=== PATIENT | female | born 1965 | race Caucasian/White ===

== ENCOUNTER 2025-06-16 10:15 | Outpatient (AMB) | payer OTHER, SELFPAY ==
--- OUTSIDE RECORDS SUMMARY | 2024-01-07 04:00 | XMS_ITS ---
Author Organization [facility] Address [address] [facility] [address] [place] [address] Care Team Providers Care Second Hand Paper Machine Name Role Phone Pao RIZVI, Ronak Primary Care Provider LAURA Ramires Unavailable [phone] Chantel Naik Unavailable Unavailable REASON FOR VISIT 10:30am... removal of hardware left and right foot, right and left maggie osteotomies Encounters Encounter Location Date Provider Diagnosis [address] [address] 01/07/2024 LAURA UGALDE Plan Of Treatment No Information Progress Notes * Giselle ZAMORANO ADOB:02/1966 (59 yo F)Acc No.[id number]:01/07/2024 Patient: Giselle WERNER Provider: Lebron Gonzalez DPM :1965 A ge:58 Y S ex:Female Date:01/07/2024 Address:[address] [place], [place] [id number] Pcp:Ronak Cedeno MD * Billing Information: * Visit Code: * Procedure Codes: * Electronic signature of Lucia FULLERPOk on 06/16/2025 at 10:17 AM EST Sign off status: Pending * Provider: Lebron Gonzalez DPM Date: 0 01/07/2024 Generated for Printi ng/Faxing/eTransmitting on: 1 08/16/2024 10:17 AM EST
--- OUTSIDE RECORDS SUMMARY | 2024-01-22 10:30 | XMS_ITS ---
Author Organization [facility] Address [address] [address] Care Team Providers Care National Account Director Name Role Phone Pao RIZVI, Ronak Primary Care Provider LAURA Ramires Unavailable [phone] Chantel Naik Unavailable Unavailable REASON FOR VISIT 2 week post-op Encounters Encounter Location Date Provider Diagnosis [facility] [address] [address] 01/22/2024 LAURA UGALDE Plan Of Treatment No Information Progress Notes * Giselle ZAMORANO ADOB:02/1966 (59 yo F)Acc No.[id number]:01/22/2024 post-op Patient: Giselle WERNER Provider: Lebron Gonzalez DPM :1965 A ge:58 Y S ex:Female Date:01/22/2024 Address:[address] [place], [place] [id number] Pcp:Ronak Cedeno MD Subjective: * Chief Complaints: Objective: * Vitals: Assessment: Plan: * Treatment: * Billing Information: * Electronic signature of Lucia FULLERPBaileyMBailey on 06/16/2025 at 10:17 AM EST Sign off status: Pending * Provider: Lebron Gonzalez DPM Date: 0 01/22/2024 Generated for Printi ng/Faxing/eTransmitting on: 1 08/16/2024 10:17 AM EST
--- OUTSIDE RECORDS SUMMARY | 2024-04-25 10:00 | XMS_ITS ---
Author Organization [facility] Address [address] [address] Care Team Providers Care Phlebotomy Lab Assistant Name Role Phone Pao RIZVI, Ronak Primary Care Provider LAURA Ramires Unavailable [phone] Chantel Naik Unavailable Unavailable REASON FOR VISIT 2 month Encounters Encounter Location Date Provider Diagnosis [facility] [address] [address] 04/25/2024 LAURA UGALDE Plan Of Treatment No Information Progress Notes * Giselle ZAMORANO ADOB:02/1966 (59 yo F)Acc No.[id number]:04/25/2024 Progress Note Patient: Giselle WERNER Provider: Lebron Gonzalez DPM :1965 A ge:58 Y S ex:Female Date:04/25/2024 Address:[address] [place], [place] [id number] Pcp:Ronak Cedeno MD Subjective: * Chief Complaints: * 1 . 2 month. * Medical History: Objective: * Vitals: Assessment: Plan: * Treatment: * Billing Information: * Visit Code: * Procedure Codes: * Electronic signature of Lucia FULLERPOk on 06/16/2025 at 10:17 AM EST Sign off status: Pending * Provider: Lebron Gonzalez DPM Date: Generated for Tami crystal/Eulogio/eTransmitting on: 08/16/2024 10:17 AM EST
--- OUTSIDE RECORDS SUMMARY | 2025-03-13 04:00 | XMS_ITS | Continuity of Care Document ---
Author Organization [facility] Address [address] [place] [address] Phone Care Team Providers Care Railroad Track Inspector Name Role Phone Raji RIZVI, RVT, RPVI, Cullen Unavailable U navailable Allergies, Adverse Reactions, Alerts Substance Reaction Status Criticality trimethoprim Active No Information sulfamethoxazole Active No Informat ion PENICILLIN Active No Information Procedures Procedure Date Office/Outpt E&M Established 15 Mins- CT & [place] Duplex Scan-extrem Veins; Uni/ CT & [place] A Duplex Scan-extrem Veins; Uni/ CT & [place] J Inj Scleros Solut; Mx Veins 1- CT & [place] J Ultrason Guidan Needle Bx-rad- CT & [place] J Office/Outpt E&M Established 15 Mins- CT & [place] Duplex Scan-extrem Veins; Uni/ CT & [place] M Office/Outpt E&M Established 15 Mins- CT & [place] Duplex Scan-extrem Veins; Uni/ CT & [place] J Duplex Scan-extrem Veins; Uni/ CT & [place] D Ultrason Guidan Needle Bx-rad- CT & MA D Inj Sclerosing Solution; Sngl- CT & [place] D Office/Outpt E&M Established 15 Mins- CT & [place] Duplex Scan-extrem Veins; Uni/ CT & [place] J Duplex Scan-extrem Veins; Uni/ CT & [place] J Inj Scleros Solut; Mx Veins 1- CT & MA M Ultrason Guidan Needle Bx-rad- CT & [place] M Duplex Scan-extrem Veins; Uni/ CT & [place] M Endovenous Laser, 1st Vein- CT & [place] Endovenous Rf, 1st Vein- CT & [place] 2023 Ultrason Guidan Needle Bx-rad- CT & MA M Inj Sclerosing Solution; Sngl- CT & [place] M Offic/outpt E&m Estab 5 Min Trial- Telem edicine CT & [place] Offic Cons New/estab Mod-hi 60 Duplex Scan-extrem Veins; Uni/ Advance Directives Directive Yes / No Effective Date File Name No Information Encounters Encounter Description Practice Location Reason(s) For Visit Diagnoses Date Provider Providers Copied on Encounter Office/Outpt E&M Established 15 Mins- [facility] & [place] [facility], [address] [place] [address] Dr Romero [address], [place], [id number], tel:[phone] [place] Venous insufficiency (chronic) (peripheral) 5 Raji RIZVI RVT, RPVI Robert. [address] [place] [address], Jacqueline [place], [id number], [place]. tel:[phone] Referring Provider: Ronak Cedeno MD , [address] [place] [address], [address]. tel:[phone] [facility], [address] [place] [address] Dr Romero [address], [id number], [place] tel:[phone] [facility] [place] Varicose veins of left lower extremity with pain 5 Raji RIZVI RVT, RPVI Robert. [address] [place] [address], [place], [id number], . tel:[phone] Referring Provider: Ronak Cedeno MD R, [address] [place] [address], [address]. tel:[phone] [facility] [place] [facility], [address] [place] [address] Dr Romero [address]SuHanane jade [place], [id number], tel:[phone] CVR - [facility] Encounter for follow-up examination after completed treatment for conditions other than malignant neoplasmVaric ose veins of left lower extremity with pain Mack-0 5 Raji RIZVI, LILLIAN, RPJEFF Berman. [address] [place] [address], [facility] [place], [id number], [place]. tel:[phone] Referring Provider: Ronak Cedeno MD R, [address] [place] [address], [address]. tel:[phone] [facility], [address] [place] [address] Dr Romero 1000[place] jade [place], [id number], [place] tel:[phone] [facility] (idiopathic) with inflammation of left lower extremity Mack-0 5 Raji RIZVI RVT, RPJEFF Berman. [address] [place] [address], [facility] [place], [id number], [place]. tel:[phone] Referring Provider: Ronak Cedeno MD R, [address] [place] [address], [address]. tel:[phone] [facility], [address] [place] [address] Dr Romero 1000[place] jade [place], [id number], [place] tel:[phone] CV - [facility] No Information 5 Raji RIZVI RVT, DEIRDRE Berman. [address] [place] [address], [facility] [place], [id number], [place]. tel:[phone] Office/Outpt E&M Established 15 Mins- CT & [place] [facility] [place] [facility], [address] [place] [address] Dr Romero 1000SuHanane jade [place], [id number], [place] tel:[phone] [place] Venous insufficiency (chronic) (peripheral)C ramp and spasm 5 Raji RIZVI RVT, DEIRDRE Berman. [address] [place] [address], Jacqueline morse [place], [id number], [place]. tel:[phone] Referring Provider: Ronak Cedeno MD R, [address] [place] [address], [address]. tel:[phone] [facility], [address] [place] [address] Dr Romero 1000Suite [place] Jack [place], [id number], [place] tel:[phone] [place] Chronic venous hypertension (idiopathic) with other complications of left lower extremity 5 Raji RIZVI RVT, DEIRDRE Berman. [address] [place] [address], Jacqueline morse [place], [id number], [place]. tel:[phone] Referring Provider: Ronak Cedeno MD R, [address] [place] [address], [address]. tel:[phone] Office/Outpt E&M Established 15 Mins- CT & [facility], [address] [place] [address] Dr Romero [address] 1000[place], [id number], [place] tel:[phone] [place] Cramp and spasmVenous insufficiency (chronic) (peripheral) 5 Raji RIZVI RVT, DEIRDRE Berman. [address] [place] [address], Jacqueline morse [place], [id number], [place]. tel:[phone] Referring Provider: Ronak Cedeno MD R, [address] [place] [address], [address]. tel:[phone] [facility], [address] [place] [address] Dr Romero [address] 1000[place], [id number], [place] tel:[phone] [place] Varicose veins of left lower extremity with pain 5 Raji RIZVI RVT, DEIRDRE Berman. [address] [place] [address], Jacqueline morse [place], [id number], [place]. tel:[phone] Referring Provider: Ronak Cedeno MD R, [address] [place] [address], [address]. tel:[phone] [facility] [place] [facility], [address] [place] [address] Dr Romero 1000Suite [place] Jack [place], [id number], [place] tel:[phone] [facility] Encounter for follow-up examination after completed treatment for conditions other than malignant neoplasmPain in left lower leg 4 Raji RIZVI RVT, DEIRDRE Berman. [address] [place] [address], [place], [place], [id number], [place]. tel:[phone] Referring Provider: Ronak Rey, [address] [place] [address], [address]. tel:[phone] [facility], [address] [place] [address] Dr Romero 1000SuHanane jade [place], [id number], [place] tel:[phone] [facility] Chronic venous hypertension (idiopathic) with inflammation of left lower extremity 4 Miguel Lin. [address] [address], [facility] [place], [id number], [place]. tel:[phone] Referring Provider: Ronak Rey, [address] [place] [address], [address]. tel:[phone] Office/Outpt E&M Established 15 Mins- CT & [facility] MD [facility], [address] [place] [address] Dr Romero 1000Suite [place] Jack [place], [id number], [place] tel:[phone] [facility] Cramp and spasmVenous insufficiency (chronic) (peripheral) 4 Raji RIZVI RVT, DEIRDRE Berman. [address] [place] [address], [facility] [place], [id number], [place]. tel:[phone] Referring Provider: Ronak Rey, [address] [place] [address], [address]. tel:[phone] [facility] [place] [facility], [address] [place] [address] Dr Romero [address]Suite [place] Jack [place], [id number], [place] tel:[phone] [facility] Encounter for follow-up examination after completed treatment for conditions other than malignant neVaricose veins of left lower extremity with pain 4 Raji RIZVI RVT, DEIRDRE Berman. [address] [place] [address], [facility] [place], [id number], [place]. tel:[phone] Referring Provider: Ronak Cedeno MD R, [address] [place] [address], [address]. tel:[phone] [facility], [address] [place] [address] Dr Romero [address] 1000[place], [id number], [place] tel:[phone] CV[facility] - [place] [facility] Encounter for follow-up examination after completed treatment for conditions other than malignant neVaricose veins of left lower extremity with pain 4 Raji RIZVI RVT, DEIRDRE Berman. [address] [place] [address], [facility] [place], [id number], [place]. tel:[phone] Referring Provider: Ronak Cedeno MD R, [address] [place] [address], [address]. tel:[phone] [facility], [address] [place] [address] Dr Romero 1000Suite [place] Jack [place], [id number], [place] tel:[phone] CVR - [facility] Varicose veins of left lower extremity with other complications 4 Raji RIZVI RVT, DEIRDRE Berman. [address] [place] [address], Jacqueline [place], [id number], [place]. tel:[phone] Referring Provider: Ronak Cedeno MD R, [address] [place] [address], [address]. tel:[phone] [facility], [address] [place] [address] Dr Romero [address]Suite [place] Jack [place], [id number], [place] tel:[phone] [facility] [place] [facility] Encounter for follow-up examination after completed treatment for conditions other than malignant neoplasmPain in left leg 4 Raji RIZVI RVT, DEIRDRE Berman. [address] [place] [address], Jacqueline morse [place], [id number], [place]. tel:[phone] Referring Provider: Ronak Rey, [address] [place] [address], [address]. tel:[phone] [facility], [address] [place] [address] Dr Romero 1000[address] 1000[place], [id number], [place] tel:[phone] [facility] [place] Chronic venous hypertension (idiopathic) with inflammation of left lower extremity 4 Raji RIZVI RVT, DEIRDRE Berman. [address] [place] [address], [place], [id number], [place]. tel:[phone] Referring Provider: Ronak Rey, [address] [place] [address], [address]. tel:[phone] [facility], [address] [place] [address] Dr Romero [place] [address], [id number], [place] tel:[phone] [facility] Varicose veins of left lower extremity with other complications 4 Raji RIZVI RVT, DEIRDRE Berman. [address] [place] [address], [place], [id number], [place]. tel:[phone] Referring Provider: Ronak Rey, [address] [place] [address], [address]. tel:[phone] Offic/outpt E&m Estab 5 Min Trial- Telemedicine CT & [place] [facility], [address] [place] [address] Dr Romero 1000[address] 1000[place], [id number], [place] tel:[phone] [facility] Cramp and spasmVenous insufficiency (chronic) (peripheral) 4 Miguel Lin. [address] [place] [address], Jacqueline [place]se [place], [id number], [place]. tel:[phone] Referring Provider: Roank Rey, [address] [place], [place] [address]ven[place], [address]. tel:[phone] Offic Cons New/estab Mod-hi 60 [facility], [address] [place] [address] [address], [id number], tel:[phone] [facility] Varicose veins of left lower extremity with other complications Pain in left lower legPain in left legCramp and spasm Feb-2 0 4 Raji RIZVI RVT, DEIRDRE Berman. [address] [place] [address], Jacqueline morse [place], [id number], [place]. tel:[phone] Referring Provider: Ronak Rey, [address] [place] [address] [place], [address]. tel:[phone] [facility], [address] [place] [address] Dr Romero 1000[facility] [address], [id number], tel:[phone] [facility] Chronic venous hypertension (idiopathic) with other complications of left lower extremity b-2 4 Raji RIZVI RVT, DEIRDRE Berman. [address] [place] [address], [place], [id number], [place]. tel:[phone] Referring Provider: Ronak Rey, [address] [place], [place] [address], [address]. tel:[phone] Family History Family Member Type Diagnosis Age At Onset No Information Payers Payer name Insurance type Covered constitution [facility] [id number] Social History Type Description Quantity Date Captured Comments Alcohol Use Details Unknown Caffeine Use Details Unknown Tobacco Use Status Current non-smoker Smoking Status Never Smoker Non-Smoking Tobacco Use Details : No Details Available : No Details Available Sex Female Vital Signs Date / Time: Height Weight BMI Pulse Rate Blood Pressure Temperature Respiratory Rate Body Surface Area Head Circumference Head Circ. Percentile Wt./Paul. Percentile BMI percentile Pulse Ox Inhaled Ox 77.110 kg (170.00 lbs) 31.1 2 kg/m eter (2) 120/80 mm[Hg] Chief Complaint And Reason For Visit No Information Reason For Referral Reason For Referral No Information Plan Of Treatment Date Type Action Status Goal Diet education completed Goal Diet education completed Goal Diet education completed Goal Diet education completed Goal Diet education completed Referral Ordered: Weight management: Referral to physician timeframe: 3 Months (related to Body mass index (BMI) 31.0-31.9, adult) ordered Referral Ordered: Weight management: Referral to physician timeframe: 3 Months (related to Body mass index (BMI) 31.0-31.9, adult) ordered Referral Ordered: Weight management: Referral to physician timeframe: 3 Months (related to Body mass index (BMI) 31.0-31.9, adult) ordered Referral Ordered: Weight management: Referral to physician timeframe: 3 Months (related to Body mass index (BMI) 31.0-31.9, adult) ordered Referral Ordered: Weight management: Referral to physician timeframe: 3 Months (related to Body mass index (BMI) 31.0-31.9, adult) ordered Appointment Giselle Zamorano BOOKED Appointment Giselle Zamorano BOOKED History Of Present Illness Encounter Date Complaint History Of Prese nt Illness No Information Functional Status Date Functional Assessmen t No Information Instructions Date Instruction Additional Infor yuni Patient education booklet given Related to Venous insufficiency (chronic) (peripheral) Lifestyle education Related to B conor mass index (BMI) 31.0-31.9, adult Giving Encouragement to exercise Related to Body mass index (BMI) 31.0-31.9, adult Diet education Related to Body mass index (BMI) 31.0-31.9, adult Patient education booklet given Related to Venous insufficiency (chronic) (peripheral) Lifestyle education Related to B conor mass index (BMI) 31.0-31.9, adult Giving Encouragement to exercise Related to Body mass index (BMI) 31.0-31.9, adult Diet education Related to Body mass index (BMI) 31.0-31.9, adult Patient education booklet given Related to Cramp and spasm Compression stocking usage as conservative measure Related to Cramp and spasm Giving Encouragement to exercise Related to Body mass index (BMI) 31.0-31.9, adult Lifestyle education Related to B conor mass index (BMI) 31.0-31.9, adult Diet education Related to Body mass index (BMI) 31.0-31.9, adult Compression stocking usage as conservative measure Related to Cramp and spasm Lifestyle education Related to B conor mass index (BMI) 31.0-31.9, adult Giving Encouragement to exercise Related to Body mass index (BMI) 31.0-31.9, adult Diet education Related to Body mass index (BMI) 31.0-31.9, adult Patient education booklet given Related to Cramp and spasm Patient education booklet given Related to Cramp and spasm Compression stocking usage as conservative measure Related to Cramp and spasm Pre and post instruc tions reviewed and provided Related to Varicose veins of left lower extremity with other complications Patient education booklet given Related to Varicose veins of left lower extremity with other complications Lifestyle education Related to B conor mass index (BMI) 31.0-31.9, adult Giving Encouragement to exercise Related to Body mass index (BMI) 31.0-31.9, adult Diet education Related to Body mass index (BMI) 31.0-31.9, adult Assessments Type Assessment Date No Information Patient Care Teams Name Effective Dates (start - stop) Status Members No Information
--- OUTSIDE RECORDS SUMMARY | 2025-06-16 10:17 | XMS_ITS | Clinical Summary ---
Author Organization [facility] [address] [place] [address] Address [address] [place] [address] Phone Care Team Providers Care Cotton Weigher Name Role Phone Ronak Cedeno MD Primary Care Provider Allergies Active Allergy Reactions Criticality Noted Date Comments Penicillins 07/19/2011 Other Reaction(s): Hives/Urticaria Sulfamethoxazole-Trimethopr im 08/24/2012 Yeast infections Medications loratadine (CLARITIN) 10 mg tablet Take 1 Tablet by mouth daily as needed for Allergies. 4 Active albuterol 2.5 mg /3 mL (0.083 %) nebulizer solution Take 1 Vial by nebulization every 4 hours as needed for Wheezing. 5 Active albuterol HFA (PROAIR HFA ; PROVENTIL HFA ; VENTOLIN HFA) 90 mcg/actuation inhaler Inhale 2 puffs by mouth every 4 (four) hours if needed for wheezing. 6.7 g 3 5 Active omeprazole (PriLOSEC) [address] capsule Take 1 capsule (20 mg total) by mouth 1 (one) time each day. Do not crush or chew. 90 capsule 1 5 Active Active Problems Problem Noted Date Diagnosed Date COVID-19 12/09/2021 Overview (05/31/2024): Pt reported 11/29/21 Gastroesophageal reflux disease without esophagi tis 01/17/2020 Intermittent lightheadedness 01/17/2020 Menopausal syndrome (hot flashes) 01/17/2020 Varicose veins with pain 02/13/2019 Hypertriglyceridemia 09/03/2015 Overweight 09/03/2015 Neck pain, acute 06/27/2013 Urinary, incontinence, stress female 09/27/2012 Allergic rhinitis 07/19/2011 Encounters Date Type Department Care Team Description 05/30/2025 9:16 AM EST - 05/30/2025 11:59 PM EST Hospital Encounter Radiology Department - [address] [phone] Abnormal mammogram Discharge Disposition: Home or Self Care 05/30/2025 9:16 AM EST - 05/30/2025 11:59 PM EST Hospital Encounter Radiology Department - [address] [phone] Abnormal mammogram Discharge Disposition: Home or Self Care 05/30/2025 Results Follow-Up Obstetrics and Gynecology - [address] [phone] Michelle Ly CNM 03/17/2025 3:09 PM EDT - 03/17/2025 11:59 PM EDT Hospital Encounter Radiology Department - [address] [phone] Encounter for annual routine gynecological examination; Screening mammogram for breast cancer Discharge Disposition: Home or Self Care from Last 3 Months Immunizations Immunization Administration Dates Next Due Influenza trivalent, 0.5mL, preservative free (Fluarix; FluLaval; Fluzone) ages 6mo and older (Afluria) 3 years and older 03/07/2017,04/05/2015,04/05/2015,2013,03/15/2013 Influenza trivalent, with preservative (Fluzone; Afluria) 6mo and older 04/02/2014 Influenza, Unspecified 03/07/2017 Tdap Tetanus diptheria acell ular pertussis (Boostrix; Adacel) 7yo and older 09/27/2012,08/24/2008 Surgical History Surgery Date Site/Laterality Comments OTHER SURGICAL HISTORY 12/2006 PROCEDURE: HISTORY OTHER; COMMENT: breast reduction OTHER SURGICAL HISTORY PROCEDURE: HISTORY OTHER; COMMENT: D &C BREAST BIOPSY Left PROCEDURE: BX BREAST; PERC NEEDLE CORE W/IMAG GUID; COMMENT: b9 BREAST SURGERY PROCEDURE: [place] UNLISTED PROCEDURE BREAST; COMMENT: reduction 2004 COLONOSCOPY 03/23/2018 PROCEDURE: HISTORICAL COLONOSCOPY; COMMENT: negative FOOT SURGERY each foot bunions surgery then hardware removal Medical History Medical History Date Comments Seasonal allergies DX:Seasonal a llergies Neck pain, acute DX:Neck pain, a cute Family history of diabetes mellitus 07/19/2011 DX:Family history of diabetes mellitus Urinary, incontinence, stress female 09/27/2012 DX:Urinary, incontinence, stress female Overweight 09/03/2015 DX:Overweight Hypertriglyceridemia 09/03/2015 DX:Hypertri glyceridemia Family History Medical History Relation Name Comments Other: MVA Brother 1 Jose Other: Substance Abuse; opioids Brother 2 Leonardo Depression Brother 3 Amador No Known Problems Brother 4 Ministerio No Known Problems Daughter Kristy : 1994 Heart attack Father Heart failure Father Other: Small Cell Lung Cancer Father Diabetes Mother Hypertension Mother Stroke Mother No Known Problems Sister 1 Jud No Known Problems Sister 2 Cornelia Breast cancer Neg Hx Colon cancer Neg Hx Ovarian cancer Neg Hx Relation Name Status Comments Brother 1 Jose Brother 2 Leonardo Alive Brother 3 Amador Alive Brother 4 Ministerio Alive Daughter Kristy Alive Father (Age 67) Maternal Grandfather Maternal Grandmother Mother (Age 59) Paternal Grandfather Paternal Grandmother Sister 1 Jud Alive Sister 2 Cornelia Alive Social History Tobacco Use Types Packs/Day Years Used Date Smoking Tobacco: Former Cigarettes 1 14 0 1979 - 1993 Smokeless Tobacco: Never Tobacco Cessation:Counseling Given: Not Answered Alcohol Use Standard Drinks/Week Comments No 0 (1 standard drink = 0.6 oz pur e alcohol) Housing Instability Answer Date Recorde d Are you worried that in the next 2 months you may not have stable housing? No 09/26/2024 Food Access & Nutrition Answer Date Rec orded Do you have access to a vari ety of food including fruits and vegetables? Yes 09/26/2024 Access to Healthcare Answer Date Record ed Within the last 3 months, ho w many times did you visit the emergency department for your medical care? 0 09/26/2024 Health Literacy Answer Date Recorded How often do you need to hav e someone help you when you read instructions, pamphlets, or other written material from your doctor or pharmacy? Never 09/26/2024 Caregiver: How often do you need to have someone help you when you read instructions, pamphlets, or other written material from your doctor or pharmacy? Not on file 09/26/2024 Financial Risk Answer Date Recorded How hard is it for you to pa y for the very basics like food, housing, medical care, and air conditioning / heating? Not very hard 09/26/2024 Transportation Answer Date Recorded Has the lack of transportati on kept you from meetings, work, or from getting things needed for daily living? No Has the lack of transportati on kept you from medical appointments or from getting medications? No 09/26/2024 Social Isolation Answer Date Recorded How often do you feel lonely or isolated from th ose around you? Never 09/26/2024 Food Risk Answer Date Recorded Within the past 12 months we worried whether our food would run out before we got money to buy more. Never true 09/26/2024 Within the past 12 months th e food we bought just didn't last and we didn't have money to get more. Never true 09/26/2024 Dependent Care Answer Date Recorded Do you need help finding or paying for care for your loved ones. For example, director of early childhood education or elderly care for an older adult? No 09/26/2024 Education Answer Date Recorded Do you think completing more education or training, like finishing a GED, going to college, or learning a trade, would be helpful for you? No 09/26/2024 Employment and Income Answer Date Recor ded During the last four weeks, have you been actively looking for work? No 09/26/2024 Living Situation Answer Date Recorded What is your living situation? Unrecognized valu e 09/26/2024 Comments No Sex and Gender Information Value Date Recorded Sex Assigned at Not on file Legal Sex Female 3:55 AM EST Gender Identity Not on file Sexual Orientation Not on file Obstetrics History * This document contains information received from the source organization and may not represent a complete record from that organization. Para Term AB IAB SAB Ectopic Multiple Livin g Live Births 2 1 1 0 0 0 1 1 Date Outcome GA Total Labor Labor/2nd/3rd Weight Sex Type Anes PTL Mariela A1 A5 Name Clin Term Vag-S pont Living Last Filed Vital Signs Vital Sign Reading Time Taken Comments Blood Pressure 120/76 02/03/2025 9:56 AM EDT Pulse 87 02/03/2025 9:56 AM EDT Temperature 36.9 C (98.4 F) 02/03/2025 9:56 AM EDT Respiratory Rate 16 02/03/2025 9:56 AM EDT Oxygen Saturation - - Inhaled Oxygen Concentration - - Weight 76.7 kg (169 lb) 02/03/2025 9:56 AM EDT Height 157.5 cm (5' 2 ) 02/03/2025 9:56 AM EDT Body Mass Index 30.91 02/03/2025 9:56 AM EDT Plan of Treatment Upcoming Encounters Date Type Department Care Team (Late st Contact Info) Description 08/07/2025 11:15 AM EST Office Visit Adult Medicine [address] [phone] Ronak Cedeno MD [address] [place] [address] 02/05/2026 8:30 AM EDT Office Visit Adult Medicine [address] [phone] Sofiya Asif PA [address] [place] [address] Health Maintenance Due Date Last Done Comments Hepatitis B Vaccines (1 of 3 - 19+ 3-dose series) 1985 Pneumococcal Vaccine: 50+ Years (1 of 1 - PCV) 2016 Zoster Vaccines (1 of 2) 2016 DTaP,Tdap,and Td Vaccines (3 - Td or Tdap) 09/27/2022 09/27/2012, 08/24/2008 COVID-19 Vaccine ( season) 2025 Influenza Vaccine (#1) 2025 7, 03/07/2017, 04/05/2015, Additional history exists Social Influencers of Health Screening 09/26/2025 09/26/2024 Breast Cancer Screening 05/30/2027 05/30/2025, 03/17 Colorectal Cancer Screening: Colonoscopy 03/23/2028 03/23/2018 Cervical Cancer Screening: HPV 10/03/2029 10/03/2024, 06/27/2013 Cholesterol Screening (Lipid Panel) 02/03/2030 02/03/2025, 11/05/2023 RSV Immunization Adult Patients (1 - 1-dose 75+ series) 2041 Hepatitis C Screening Completed 01/17/2022 Depression Screening Completed 09/26/2024 HIB Vaccines Aged Out No longer eligi ble based on patient's age to complete this topic HIV Screening Discontinued HPV Vaccines Aged Out No longer eligi ble based on patient's age to complete this topic Hepatitis A Vaccines Aged Out No long er eligible based on patient's age to complete this topic IPV Vaccines Aged Out No longer eligi ble based on patient's age to complete this topic MMR Vaccines Aged Out No longer eligi ble based on patient's age to complete this topic Meningococcal ACWY Vaccine Aged Out N o longer eligible based on patient's age to complete this topic Meningococcal B Vaccine Aged Out No l onger eligible based on patient's age to complete this topic RSV Immunization Patients Under 20 months Aged Out No longer eligible based on patient's age to complete this topic Varicella Vaccines Aged Out No longer eligible based on patient's age to complete this topic Procedures Procedure Name Priority Date/Time Associated Diagnosis Comments US BREAST LIMITED LEFT Routine 05/30/2025 10:08 AM EST Abnormal mammogram MG MAMMO DIGITAL DIAGNOSTIC W HERBERT LEFT Routine 05/30/2025 9:32 AM EST Abnormal mammogram MG MAMMO DIGITAL SCREENING W HERBERT BILAT Routine 03/17/2025 3:25 PM EDT Encounter for annual routine gynecological examination Screening mammogram for breast cancer LIPID PANEL WITH REFLEX TO DIRECT LDL Routine 02/03/2025 10:47 AM EDT Hypertriglyceridemia HPV WITH REFLEX GENOTYPE Routine 10/03/2024 3:07 PM EDT Encounter for annual routine gynecological examination HEPATITIS C SCREENING Routine 01/17/2022 COLONOSCOPY Routine 03/23/2018 from Last 3 Months or Most Recently Relevant to Health Maintenance Results * US Breast Limited Left (05/30/2025 10:08 AM EST) Anatomical Region Laterality Modality Breast Left Ultrasound 05/30/2025 9:58 AM EST Impressions 05/30/2025 10:14 AM EST Benign. Findings and recommendations were conveyed to the patient. BI-RADS CATEGORY: 1 - NEGATIVE RECOMMENDATION: Return to annual mammography. Return to annual mammography. Return to annual mammography. Mammo Location: [facility], [address] [place] [address], [id number], . -------- FINAL REPORT -------- Dictated By: Polly House Dictated Date: 05/30/2025 09:58 ET Assigned Physician: Polly House Reviewed and Electronically Signed By: Polly House Signed Date: 05/30/2025 10:14 ET Workstation ID: [id number] Transcribed By: Self Edit Transcribed Date: 05/30/2025 10:05 ET Narrative 05/30/2025 10:14 AM EST CLINICAL: 59 years old, Female, focal asymmetry anterior upper outer left breast on screening mammogram of 03/17/2025.. COMPARISON: Mammograms dating back to 11/05/2011. FINDINGS: MAMMOGRAPHY TECHNIQUE: ML, spot compression MLO, and spot compression CC views of the left breast were obtained digitally with 3-D mammogram (digital breast tomosynthesis). Computer-aided detection was utilized in evaluation of this exam (CAD). Focal asymmetry at the 12 o'clock position in the retroareolar region is a persistent finding. There is a tissue marker adjacent to this area. BREAST DENSITY: B - There are scattered areas of fibroglandular density. ULTRASOUND TECHNIQUE: Ultrasound evaluation of the upper left breast at the 12 o'clock position was performed. Portions of the upper outer and upper inner quadrants were examined. There is no evidence of morphologically suspicious mass. There is no cyst or solid mass. Procedure Note Polly House MD - 05/30/2025 CLINICAL: 59 years old, Female, focal asymmetry anterior upper outer leftbreast on screening mammogram of 03/17/2025.. COMPARISON: Mammograms dating back to 11/05/2011. FINDINGS: MAMMOGRAPHY TECHNIQUE: ML, spot compression MLO, and spot compression CC views of theleft breast were obtained digitally with 3-D mammogram (digital breasttomosynthesis). Computer-aided detection was utilized in evaluation ofthis exam (CAD). Focal asymmetry at the 12 o'clock position in the retroareolar region is apersistent finding. There is a tissue marker adjacent to this area. BREAST DENSITY: B - There are scattered areas of fibroglandular density. ULTRASOUND TECHNIQUE: Ultrasound evaluation of the upper left breast at the 12o'clock position was performed. Portions of the upper outer and upperinner quadrants were examined. There is no evidence of morphologically suspicious mass. There is no cystor solid mass. IMPRESSION: Benign. Findings and recommendations were conveyed to the patient. BI-RADS CATEGORY: 1 - NEGATIVE RECOMMENDATION: Return to annual mammography. Return to annual mammography. Return toannual mammography. Mammo Location: [facility], [address] [place] [address], [phone], . -------- FINAL REPORT -------- Dictated By: Polly House Dictated Date: 05/30/2025 09:58 ET Assigned Physician: Polly House Reviewed and Electronically Signed By: Polly House Signed Date: 05/30/2025 10:14 ET Workstation ID: [id number] Transcribed By: Self Edit Transcribed Date: 05/30/2025 10:05 ET us Michelle BEAUCHAMP IMG US PROCEDURES Final Result * MG Mammo Digital Diagnostic w Herbert Left (05/30/2025 9:32 AM EST) Anatomical Region Laterality Modality Breast Left Mammography 05/30/2025 9:58 AM EST Impressions 05/30/2025 10:14 AM EST Benign. Findings and recommendations were conveyed to the patient. BI-RADS CATEGORY: 1 - NEGATIVE RECOMMENDATION: Return to annual mammography. Return to annual mammography. Return to annual mammography. Mammo Location: [facility], [address] [place] [address], [phone], . -------- FINAL REPORT -------- Dictated By: Polly House Dictated Date: 05/30/2025 09:58 ET Assigned Physician: Polly House Reviewed and Electronically Signed By: Polly House Signed Date: 05/30/2025 10:14 ET Workstation ID: [id number] Transcribed By: Self Edit Transcribed Date: 05/30/2025 10:05 ET Narrative 05/30/2025 10:14 AM EST CLINICAL: 59 years old, Female, focal asymmetry anterior upper outer left breast on screening mammogram of 03/17/2025.. COMPARISON: Mammograms dating back to 11/05/2011. FINDINGS: MAMMOGRAPHY TECHNIQUE: ML, spot compression MLO, and spot compression CC views of the left breast were obtained digitally with 3-D mammogram (digital breast tomosynthesis). Computer-aided detection was utilized in evaluation of this exam (CAD). Focal asymmetry at the 12 o'clock position in the retroareolar region is a persistent finding. There is a tissue marker adjacent to this area. BREAST DENSITY: B - There are scattered areas of fibroglandular density. ULTRASOUND TECHNIQUE: Ultrasound evaluation of the upper left breast at the 12 o'clock position was performed. Portions of the upper outer and upper inner quadrants were examined. There is no evidence of morphologically suspicious mass. There is no cyst or solid mass. Procedure Note Polly House MD - 05/30/2025 CLINICAL: 59 years old, Female, focal asymmetry anterior upper outer leftbreast on screening mammogram of 03/17/2025.. COMPARISON: Mammograms dating back to 11/05/2011. FINDINGS: MAMMOGRAPHY TECHNIQUE: ML, spot compression MLO, and spot compression CC views of theleft breast were obtained digitally with 3-D mammogram (digital breasttomosynthesis). Computer-aided detection was utilized in evaluation ofthis exam (CAD). Focal asymmetry at the 12 o'clock position in the retroareolar region is apersistent finding. There is a tissue marker adjacent to this area. BREAST DENSITY: B - There are scattered areas of fibroglandular density. ULTRASOUND TECHNIQUE: Ultrasound evaluation of the upper left breast at the 12o'clock position was performed. Portions of the upper outer and upperinner quadrants were examined. There is no evidence of morphologically suspicious mass. There is no cystor solid mass. IMPRESSION: Benign. Findings and recommendations were conveyed to the patient. BI-RADS CATEGORY: 1 - NEGATIVE RECOMMENDATION: Return to annual mammography. Return to annual mammography. Return toannual mammography. Mammo Location: [facility], [address] [place] [address], [phone], . -------- FINAL REPORT -------- Dictated By: Polly House Dictated Date: 05/30/2025 09:58 ET Assigned Physician: Polly House Reviewed and Electronically Signed By: Polly House Signed Date: 05/30/2025 10:14 ET Workstation ID: [id number] Transcribed By: Self Edit Transcribed Date: 05/30/2025 10:05 ET Michelle Ly CNM IMG BI PROCEDURES Final Result * (ABNORMAL) MG Mammo Digital Screening w Herbert bilat (03/17/2025 3:25 PM EDT) Anatomical Region Laterality Modality Breast Bilateral Mammography 03/21/2025 10:3 4 AM EDT Impressions 03/21/2025 10:39 AM EDT Focal asymmetry in the left breast as detailed. Additional imaging is recommended. We will contact the patient for the arrangements. BI-RADS CATEGORY: 0 - INCOMPLETE - NEED ADDITIONAL IMAGING EVALUATION RECOMMENDATION: Additional left breast imaging recommended. Mammo Location: [facility], [address] [place] [address], [id number], . -------- FINAL REPORT -------- Dictated By: Zayra Duque Dictated Date: 03/21/2025 10:34 ET Assigned Physician: Zayra Duque Reviewed and Electronically Signed By: Zayra Duque Signed Date: 03/21/2025 10:39 ET Workstation ID: [id number] Transcribed By: Self Edit Transcribed Date: 03/21/2025 10:34 ET Narrative 03/21/2025 10:39 AM EDT Bilateral screening mammogram. CLINICAL: 59 years old, Female, routine annual exam. COMPARISON: Prior mammograms, latest from 10/10/2015. TECHNIQUE: Bilateral MLO and CC views were obtained digitally with 2-D C views and 3-D mammogram (digital breast tomosynthesis). Computer-aided detection was utilized in evaluation of this exam (CAD). FINDINGS: There is a focal asymmetry in the anterior upper outer breast. Additional assessment with spot compression views in CC and MLO projections as well as full field striped lateral views is recommended. Ultrasound would also be needed. There is no evidence of other suspicious mass or architectural distortion. No worrisome calcifications are evident. BREAST DENSITY: B - There are scattered areas of fibroglandular density. Procedure Note Zayra Duque MD - 03/21/2025 Bilateral screening mammogram. CLINICAL: 59 years old, Female, routine annual exam. COMPARISON: Prior mammograms, latest from 10/10/2015. TECHNIQUE: Bilateral MLO and CC views were obtained digitally with 2-D Cviews and 3-D mammogram (digital breast tomosynthesis). Computer-aideddetection was utilized in evaluation of this exam (CAD). FINDINGS: There is a focal asymmetry in the anterior upper outer breast. Additionalassessment with spot compression views in CC and MLO projections as wellas full field striped lateral views is recommended. Ultrasound would alsobe needed. There is no evidence of other suspicious mass or architectural distortion.No worrisome calcifications are evident. BREAST DENSITY: B - There are scattered areas of fibroglandular density. IMPRESSION: Focal asymmetry in the left breast as detailed. Additional imaging isrecommended. We will contact the patient for the arrangements. BI-RADS CATEGORY: 0 - INCOMPLETE - NEED ADDITIONAL IMAGING EVALUATION RECOMMENDATION: Additional left breast imaging recommended. Mammo Location: [facility], [address] [place] [address], [id number], . -------- FINAL REPORT -------- Dictated By: Zayra Duque Dictated Date: 03/21/2025 10:34 ET Assigned Physician: Zayra Duque Reviewed and Electronically Signed By: Zayra Duque Signed Date: 03/21/2025 10:39 ET Workstation ID: [id number] Transcribed By: Self Edit Transcribed Date: 03/21/2025 10:34 ET Michelle BEAUCHAMP IMG BI PROCEDURES Final Result * (ABNORMAL) Lipid panel with reflex to direct LDL (02/03/2025 10:47 AM EDT) Cholesterol 236(H) 0 - 200 mg/dL LAB CHEMISTRY METHOD 02/03/2025 3:21 PM EDT [facility] Triglycerides 199(H) 0 - 150 mg/dL LAB CHEMISTRY METHOD 02/03/2025 3:21 PM EDT [facility] HDL 47 >=40 mg/dL LAB CHEMISTRY METHOD 02/03/2025 3:21 PM EDT [facility] LDL Calculated 149(H) 0 - 100 mg/dL LAB CHEMISTRY METHOD 02/03/2025 3:21 PM [facility] VLDL Cholesterol Esa 39.8 mg/dL LAB CHEMISTRY METHOD 02/03/2025 3:21 PM [facility] Non HDL Chol. (LDL+VLDL) 189(H) <145 mg/dL LAB CHE[facility]STR[facility] Chol/HDL Ratio 5.0(H) 0.0 - 4.4 LAB CHEMISTRY METHOD 02/03/2025 3:21 PM EDT [facility] Blood Venous blood specimen / Unknown Venipuncture / Unknown 02/03/2025 10:47 AM EDT 02/03/2025 10:47 AM EDT Sofiya KUHN LAB BLOOD ORDERABLES Fin al Result Performing Organization Address City/[facility]/ZIP Co de Phone Number [facility] [address] [place] [address], * HPV with reflex genotype (10/03/2024 3:07 PM EDT) Pathologist [facility] HPV Negative Negative LAB MICROBIOLOGY METHOD 10/05/2024 2:08 PM EDT [facility] Brushing/Spatula Cervix uteri structure / Unknown 10/03/2024 3:07 PM EDT 10/05/2024 7:35 AM EDT Michelle Ly CNM LAB MOLECULAR DIAGNOSTICS ORDER GREG Final Result Performing Organization Address City/[facility]/ZIP Co de Phone Number [facility] [address] [place] [address], [place] [phone] * Hepatitis C Screening (01/17/2022) Hepatitis C Screening Abstracted Historical Provider HEALTH MAINTENANCE Final Result * Colonoscopy (03/23/2018) Colonoscopy No interpretation , Abstracted Anatomical Region Laterality Modality Other Historical Provider HEALTH MAINTENANCE Final Result from Last 3 Months or Most Recently Relevant to Health Maintenance Insurance [facility] Care Teams Cotton Weigher Relationship Specialty Start Date End Date Ronak Cedeno MD [address] [place] [address] PCP - General Internal Medicine 02/20/22
--- OUTSIDE RECORDS SUMMARY | 2025-06-16 10:17 | XMS_ITS | Patient Health Record ---
Author Organization [facility] Address [address] [place] [address] Care Team Providers Care Director Of Parks And Recreation Name Role Phone Ronak Cedeno MD Primary Care Provider LAURA Ramires Unavailable [phone] Chantel Naik Unavailable Unavailable Allergies Allergen (clinical drug ingredient) Drug/Non Drug Allergy documented on EMR Reaction Allergy Type Onset Date Status sulfamethoxazole / trimethoprim Bactrim Unknown Drug Allergy Active Cat dander Cat Dander Unknown Allergy Active Mold Unknown Allergy Active Pollen Pollen Unknown Allergy Active Penicillin Unknown Drug Allergy Active Reason For Referral No Information Medications Medication SIG (Take, Route, Frequency, Duration) Notes Start Date End Date Status Ondansetron HCl 4 MG 1 tablet as needed for nausea Orally every 8 hours; Duration: 30 days partial fill allowed upon request of the patient. 01/06/2024 Not-Taking Omeprazole 20 MG 1 capsule 30 minutes before morning meal Orally Once a day Not-Taking Acetaminophen 500 MG 1 tablet as needed Orally every 4 hrs; Duration: 30 days Partial fill allowed upon request of patient. 12/18/2022 Not-Taking Lactobacillus-Inulin - as directed Orally Not-Taking Acetaminophen 500 MG 1 tablet as needed Orally every 4 hrs; Duration: 30 days partial fill allowed upon request of the patient. 01/06/2024 Not-Taking oxyCODONE HCl 5 MG 1 tablet as needed for severe pain Orally every 6 hrs; Duration: 7 days partial fill allowed upon request of patient 02/12/2022 Not-Taking Ibuprofen 600 MG 1 tablet with food or milk as needed Orally Three times a day; Duration: 30 days partial fill allowed upon request of the patient. 01/06/2024 Not-Taking hydrOXYzine HCl 25 MG 1 tablet as needed for nausea/itching/an xiety Orally every 8 hrs; Duration: 30 day(s) 02/12/2022 Not-Taking Claritin 10 MG 1 tablet Orally Once a day PRN Active Acetaminophen 500 MG 1 tablet as needed Orally every 4 hrs; Duration: 30 days 02/12/2022 Not-Taking Triamcinolone Acet-Ciclopirox 0.1 & 8 % as directed Externally PRN Not-Taking Apixaban 5 MG as directed Orally once a day; Duration: 90 days DVT prophylaxis for after foot surgery. Not-Taking Albuterol 2.5MG/3MG PRN Active hydrOXYzine HCl 25 MG 1 tablet as needed for nausea/itching/an xiety Orally every 8 hrs; Duration: 30 day(s) Partial fill allowed upon request of patient. 12/18/2022 Not-Taking Albuterol Sulfate 108 (90 Base) MCG/ACT 1 puff as needed Inhalation every 4 hrs PRN Active Eliquis 5 MG 1 tablet Orally Twice a day Not-Taking Ibuprofen 600 MG 1 tablet with food or milk as needed Orally every 6 hrs; Duration: 30 days Partial fill allowed upon request of patient. 12/18/2022 Not-Taking oxyCODONE HCl 5 MG 1 tablet as needed for severe pain Orally every 6 hrs; Duration: 5 days Partial fill allowed upon request of patient. 12/18/2022 Not-Taking oxyCODONE HCl 5 MG 1 tablet as needed for severe pain Orally every 6 hrs; Duration: 5 days partial fill allowed upon request of the patient. 01/06/2024 Not-Taking Problems Problem Type SNOMED Code ICD Code Onset Dates Problem Status W/U Status Risk Notes Problem Acquired hallux valgus (74998018) Hallux valgus (acquired), left foot (M20.12) Active confirmed Problem Hallux valgus of left foot (8016777040) Hallux valgus of left foot (M20.12) Active confirmed Problem Acquired hallux valgus (72599615) Valgus deformity of right great toe (M20.11) Active confirmed Problem Acquired hallux valgus (87319710) Valgus deformity of left great toe (M20.12) Active confirmed Problem Erythrocytosis (683376234) Erythrocytosis (D75.1) Active confirmed Problem Pre-procedure evaluation check (111658205) Pre-op testing (Z01.818) Active confirmed Plan Of Treatment Pending Test Test Name Order Date Electrocardiogram (EKG) 08/19/2022 Uric Acid, Serum 12/11/2021 CBC With Differential/Platelet RALPH w/Reflex if Positive 12/11/2021 ESR 12/11/2021 X ray : Foot, left 3v 03/28/2022 X ray : Foot, left 3v 05/09/2022 X ray : Foot, left 3v 08/19/2022 X ray : Foot, right 3v 12/16/2022 X ray : Foot, right 3v 02/03/2023 X ray : Foot, right 3v 03/27/2023 X ray : Foot, right 3v 07/17/2023 25OH VITAMIN D 12/11/2021 BASIC METABOLIC PANEL 08/19/2022 CBC (COMPLETE BLOOD COUNT) 08/19/2022 CITRULLINE PEPTIDE ANTIBODY 12/11/2021 COMPREHENSIVE METABOLIC PANEL 12/11/2021 C-REACTIVE PROTEIN 12/11/2021 RHEUMATOID FACTOR 12/11/2021 SEDIMENTATION RATE 12/11/2021 WALKING BOOT PNEUMATIC AND/OR VAC 2021 WALKING BOOT PNEUMATIC AND/OR VAC 2022 CBC, Platelet, No [id number] Insurance Providers Payer Name Payer Address Payer Phone Subscriber Number Group Number Insured Name Patient Relationship to Insured Coverage Start Date Coverage End Date [facility] [address] [facility] [place] [address] [phone] [id number] Giselle Zamorano Self - patient is the insured Medical (General) History Medical History History ICD Code History of COVID-19 Gastroesophageal Reflux Disease w/o Esop hagitis Intermittent Lightheadedness Menopausal Syndrome (hot flashes) Varicose Veins Hypertriglyceridemia Neck Pain, Acute Urinary, incontinence Allergic Rhinitis breast reduction 2006 + COVID 2021 not COVID vaccinated Surgical History Surgery Date(Month/Year) Breast Reduction 2006 Left hallux valgus surgery 01/2022 Right hallux valgus surgery 12/2022 Left varicose vein ablations 2023 Hospitalization History Reason Date(Month/Year) breast reduction 2006 vaginal delivery (girl) 1994
--- OUTSIDE RECORDS SUMMARY | 2025-06-16 10:17 | XMS_ITS | Patient Health Record ---
[facility] Address [address] [place] [address] Care Team Providers Care Certified Personal Finance Counselor Name Role Phone Ella RIZVI, Kimi Baugh Primary Care Provider Ria Galeana Unavailable [phone] Allergies Allergen (clinical drug ingredient) Drug/Non Drug Allergy documented on EMR Reaction Allergy Type Onset Date Status sulfamethoxazole / trimethoprim Bactrim Unknown Drug Allergy Active Penicillin rash Drug Allergy Active Substance with sulfonamide structure and antibacterial mechanism of action (substance) Sulfa Antibiotics Unknown Drug Allergy A ctive Reason For Referral No Information Medications Medication SIG (Take, Route, Fr equency, Duration) Notes Start Date End Date Status Omeprazole 20 MG 1 tablet 30 minutes before morning meal Orally Once a day; Duration: 30 day(s) Not-Taking Loratadine 10 MG 1 tablet Orally Once a day; Duration: 30 day(s) Active Social History Tobacco Use: Social History Observation Description Date Details (start date - stop date) Former Smoker NA - NA Tobacco Use/Smoking Question Answer Notes Are you a: former smoker Additional Findings: Tobacco Non-User Current no n-smoker Alcohol Screen Question Answer Notes Did you have a drink containing alcohol in the p ast year? No Points 0 Interpretation Negative Tobacco use other than smoking: Question Answer Notes Are you an other tobacco user? 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) Active confirmed Problem Localized, primary osteoarthritis of the ankle and/or foot (572329944) Osteoarthritis of left ankle and foot (M19.072) Active confirmed Plan Of Treatment Pending Test Test Name Order Date X ray : Foot, left 3V 09/03/2021 X ray : Foot, right 3V 09/03/2021 Insurance Providers Payer Name Payer Address Payer Phone Subscriber Number Group Number Insured Name Patient Relationship to Insured Coverage Start Date Coverage End Date [facility] [address] [place] [id number] Giselle Zamorano Self - patient is the insured Medical (General) History Medical History History ICD Code covid-19 Headaches/Migraines Warts Surgical History Surgery Date(Month/Year) breast reduction 2006
--- OUTSIDE RECORDS SUMMARY | 2025-06-16 10:17 | XMS_ITS | Encounter Summary ---
Author Organization [facility] [place] [address] Care Team Providers Care Aircraft Air Conditioning Mechanic Name Role Phone Ronak Cedeno MD Primary Care Provider [phone] Encounter Details Date Type Department Care Team (Late st Contact Info) Description 05/30/2025 Results Follow-Up Obstetrics and Gynecology - [address] [address] [address] [place] [address] Social History Tobacco Use Types Packs/Day Years Used Date Smoking Tobacco: Former Cigarettes 1 14 0 1979 - 1993 Smokeless Tobacco: Never Alcohol Use Standard Drinks/Week Comments No 0 [...] care for your loved ones. For example, early childhood education coordinator or elderly care for an older adult? [...] on file Sexual Orientation Not on file documented as of this encounter Plan of Treatment Upcoming Encounters Date Type Department Care Team ([facility] Contact Info) Description 08/07/2025 11:15 AM EST Office Visit Adult Medicine [address] [place] [phone] Ronak Cedeno MD [address] [place] [address] 02/05/2026 8:30 AM EDT Office Visit Adult Medicine [address] [phone] Sofiya Asif PA [address] [place] [address] documented as of this encounter Visit Diagnoses Not on filedocumented in this encounter Additional Health Concerns Assessment Noted Time PHQ-9 Depression Total Score: 0 09/27/19 25 2:38 PM EDT documented as of this encounter Care Teams Aircraft Air Conditioning Mechanic Relationship Specialty Start Date End Date Ronak Cedeno MD [address] [place] [address] PCP - General Internal Medicine 02/20/22 documented as of this encounter
--- NOTE | 2025-06-16 10:40 | AM.OFFWIN_ITS ---
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 pt reports h/o bronchitis Allergies Penicillins Allergy (Intermediate, Verified 06/16/25 10:41) rash sulfamethoxazole (From Bactrim) Adverse Reaction (Mild, Verified 06/16/25 10:41) yeast infection trimethoprim (From Bactrim) Adverse Reaction (Mild, Verified 06/16/25 10:41) yeast infection Do you need a note to return to daycare/school/sports/work: No HPI HPI Comments History of Present Illness Details History of Present Illness The patient is a 59 year old individual presenting with upper respiratory symptoms. - The patient reports feeling unwell for at least two weeks, with symptoms worsening over the last week. - Symptoms include headaches, congestion , a productive cough with green sputum that developed last week, and a dry, hacking cough. - The patient experienced wheezing the p rev day and uses an albuterol inhaler for relief. - There is no formal diagnosis of asthma or COPD, though patient reports a test decades ago was negative. - Reports a prior history of smoking but has quit > 30 years ago. - The patient denies fever, nausea, vomi ting, or diarrhea. - The patient has been taking an over-th e-counter decongestant. Review of Systems - Constitutional: Denies fever or chills - HEENT: Reports rhinorrhea and congesti on. Reports cough with productive, green sputum - Cardiac: Denies chest pain - Respiratory: Reports a productive coug h, a dry hacking cough, and wheezing, particularly the day prior to the visit. - Gastrointestinal: Negative for abdomin al pain, nausea, vomiting, diarrhea, - Musculoskeletal: Negative for myalgias , - Neurological: Reports headaches Physical Exam General Appearance: Normal appearance, well developed. No acute distress ENT: External ears and ear canals normal. TM without erythema or bulging. Nasal drainage noted. Oropharynx clear without erythema or exudate. Head: Normocephalic, atraumatic Pulmonary: No respiratory distress. Clear to auscultation bilaterally Speaking in full sentences Cardiac: Regular rate and rhythm. No murmurs. Musculoskeletal: Moving all extremities spontaneously and against gravity Mental Status: Alert and Oriented x 3 Psychiatric: Normal mood. Normal affect. Physical Exam Vital Signs: Last Vital Signs Temp 98.2 F 06/16/25 10:50 Pulse 98 06/16/25 10:50 BP 158/90 H 06/16/25 10:50 Pulse Ox 96 06/16/25 10:50 Oxygen Delivery Method Room Air 06/16/25 10:50 BMI result Body Mass Index 30.7 Assessment & Plan Assessment & Plan (1) Acute rhinosinusitis: Code(s): J01.90 - Acute sinusitis, unspecified (2) Acute bronchitis: Code(s): J20.9 - Acute bronchitis, unspecified Qualifiers: Bronchitis organism: unspecified organism Qualified Code(s): J20.9 - Acute bronchitis, unspecified (3) Elevated blood pressure reading: Code(s): R03.0 - Elevated blood-pressure reading, without diagnosis of hypertension Plan - The patient presents with a two-week history of worsening congestion, headaches, productive cough, and wheezing. - Low suspicion for pneumonia given clear lungs to auscultation, afebrile, and patient saturating well--no indication for CXR. - Plan includes prescribing doxycycline 100 mg twice daily for five days. Patient advised to avoid direct sunlight while taking medication and to sit up for 30 minutes post administration of medication. Advised to avoid taking antacids, multivitamis, and supplements containing iron, calcium, Mg, or zinc within 2 hour of taking Doxycycline. - Advised she may continue albuterol as needed for any wheezing or shortness of breath - The patient has a history of hypertension managed with lifestyle modifications. The current use of decongestants may be contributing to elevated blood pressure. - The patient was advised to discontinue [id number] decongestants. May use Mucinex as needed. The patient was advised to return for new fevers, chest pain, or worsening shortness of breath. Patient was informed and verbally consented to the use of an ambient scribe for clinic note documentation during the visit. Medications: New doxycycline hyclate 100 mg PO BID 10 caps 0RF Coding Level of Care Code New Pt Level 3 (68340) Diagnoses Acute rhinosinusitis J01.90 Acute bronchitis, unspecified organism J20.9 Bronchitis organism: unspecified organism Elevated blood pressure reading R03.0
[2025-06-16 10:50] VITALS: BP 158/90; PULSE 98; TEMP 36.8; O2SAT 96; BMI 30.7
== END 2025-06-16 11:05 | disposition home or self-care (01) ==
PROVIDERS: PCP Internal Medicine; Visit Provider Family Medicine
DX: J01.90 Acute sinusitis, unspecified (principal); J20.9 Acute bronchitis, unspecified; R03.0 Elevated blood-pressure reading, without diagnosis of hypertension

== ENCOUNTER 2025-06-26 08:48 | Outpatient (AMB) | payer OTHER, SELFPAY ==
[2025-06-26 09:02] VITALS: BP 162/100; PULSE 94; RESP 16; TEMP 36.6; O2SAT 96; BMI 30.5
--- NOTE | 2025-06-26 09:02 | AM.OFFWIN_ITS ---
Intake Vital Signs 06/26/25 09:02 Height 5 ft 2 in Weight 167 lb BMI 30.5 BP 162/100 H Blood Pressure Location Lt brachial Position Sitting Respiration 16 Pulse 94 Pulse Source Pulse Oximeter Temp 97.9 F Temp Source Oral Pulse Oximetry (%) 96 Oxygen Delivery Method Room Air Intake Visit Reasons: EP-unable to sleep due to meds from DOS:06/16/25 Intake Note: pt presents with inability to sleep and has not slept at all last night and is still on Prednisone 20mg QAM for URI Allergies Penicillins Allergy (Intermediate, Verified 06/26/25 09:08) rash sulfamethoxazole (From Bactrim) Adverse Reaction (Mild, Verified 06/26/25 09:08) yeast infection trimethoprim (From Bactrim) Adverse Reaction (Mild, Verified 06/26/25 09:08) yeast infection Do you need a note to return to daycare/school/sports/work: Yes HPI HPI Comments History of Present Illness Details 59 y/o female presents to the [facility] with inability to sleep for the past few nights. She reports she was recently prescribed Prednisone 20 mg PO for URI symptoms last week. States her insomnia began after starting Prednisone. Reports difficulty falling asleep but denies anxiety, palpitations, shortness of breath, chest pain, headaches, mood changes, fever, chills, or other associated symptoms. No prior history of insomnia. 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 Physical Exam Vital Signs: Last Vital Signs Temp 97.9 F 06/26/25 09:02 Pulse 94 06/26/25 09:02 Resp 16 06/26/25 09:02 BP 162/100 H 06/26/25 09:02 Pulse Ox 96 06/26/25 09:02 Oxygen Delivery Method Room Air 06/26/25 09:02 BMI result Body Mass Index 30.5 Const General: no acute distress Orientation/consciousness: patient oriented x3 Resp Effort & Inspection: normal respiratory effort Cardio Rate: regular rate Neuro General: patient oriented x3, gait normal and moves all extremities Psych Speech and movement: Normal speech and movement present Assessment & Plan Assessment & Plan (1) 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 likely secondary to Prednisone use. Recent URI, improving. Stop Prednisone as symptoms have resolved and medication is likely contributing to insomnia. Recommend OTC sleep aids, such as: Melatonin 3?5 mg at bedtime as needed, OR Diphenhydramine (Benadryl) 25 mg at bedtime as needed. Encourage good sleep hygiene: limit screens before bed, avoid caffeine after noon, maintain consistent bedtime routine. 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
== END 2025-06-26 09:37 | disposition home or self-care (01) ==
PROVIDERS: PCP Internal Medicine; Visit Provider Nurse Practitioner Family
DX: F19.982 Other psychoactive substance use, unspecified with psychoactive substance-induced sleep disorder (principal)